=== PATIENT | male | born 1995 ===

== ENCOUNTER 2023-07-15 06:19 | Emergency (ER) | payer SELFPAY ==
--- NOTE | 2023-07-15 06:40 | PC.NURSE ---
pt came by ems , A/OX3 ambulatory using phone in ED , seen leaving ED by EMS with a steady gait
== END 2023-07-15 07:00 | disposition left against medical advice (07) ==
PROVIDERS: Emergency Provider Emergency Medicine
DX: T50.901A Poisoning by unspecified drugs, medicaments and biological substances, accidental (unintentional), initial encounter (principal); Y92.481 Parking lot as the place of occurrence of the external cause